=== PATIENT | female | born 1975 | race Caucasian/White ===

== ENCOUNTER 2016-11-13 03:31 | Emergency (ER) | payer OTHER ==
[2016-11-13 04:11] VITALS: BP 111/77; PULSE 89; TEMP 97.6; BMI 27.9
[2016-11-13] MEDS ORDERED: SODIUM CHLORIDE 0.9% 1000 ML INFUS.BAG IV ONE (04:19)
[2016-11-13] MEDS ORDERED: ONDANSETRON 4 MG/2 ML VIAL IVPUSH ONE (04:19)
[2016-11-13] MEDS ORDERED: MECLIZINE HCL 25 MG TABLET (FP) PO ONE (04:19)
[2016-11-13] MEDS ORDERED: ONDANSETRON 4 MG/2 ML VIAL ONE (04:40)
[2016-11-13] MEDS ORDERED: MECLIZINE HCL 25 MG TABLET (FP) ONE (04:40)
[2016-11-13 04:59] LABS: BASOPHIL 0.3 % (0-2.0); EOSINOPHIL 0.3 % (0-4.5); MCH 29.6 pg (25.7-33.7); MCHC 34.3 g/dl (32.0-36.0); MEAN CELL VOLUME 86.3 fl (80-96); MEAN PLT VOLUME 9.1 fl (7.5-11.1); PLATELET COUNT 250 K/MM3 (134-434); RDW 13.2 % (11.6-15.6); WHITE BLOOD COUNT 13.8 K/mm3 (4.0-10.0)
[2016-11-13 05:25] LABS: ALBUMIN 4.2 g/dl (3.4-5.0); ALK PHOS 64 U/L (45-117); ANION GAP 7 (8-16); BILIRUBIN,TOTAL 0.6 mg/dL (0.2-1.0); CALCIUM 9.1 mg/dL (8.5-10.1); CO2 26 mmol/L (21-32); CREATININE 0.7 mg/dL (0.55-1.02); GLUCOSE,RANDOM 134 mg/dL (74-106); SGOT/AST 19 U/L (15-37); SGPT/ALT 26 U/L (12-78); TOT PROT 7.7 g/dl (6.4-8.2)
[2016-11-13] MEDS ORDERED: diazePAM 5 MG TABLET PO ONE (06:54)
[2016-11-13] MEDS ORDERED: diazePAM 5 MG TABLET ONE (07:15)
--- NOTE | 2016-11-13 07:19 | PDOC ---
History of Present Illness <Tahmina Diaz - Last Filed: 11/13/16 07:14> - History of Present Illness Initial Comments: 11/13/16 07:22 The patient is a 40 year old female, with no significant past medical history, who presents to the emergency department with 5 days of persistent left ear pain and ringing with new onset of vertigo and diarrhea for two days. She reports the left ear pain is constant and the ringing is intermittent yet frequent, but denies increased ear pain since onset. She reports feeling as if her eyes are spinning. She states her dizziness gradually increased to the point of nausea. She reports multiple episodes of nonbloody emesis which prompted her to come to the ED. She reports her stools have been watery and with her last episode of vertigo, diarrhea was the last symptoms to come also. She denies chest pain, shortness of breath, headache. She denies fever, chills, and constipation. She denies dysuria, frequency, urgency and hematuria. Allergies: NKDA Past surgical history: none reported Social history: Pt denies tobacco use <Raven Jacobo - Last Filed: 11/13/16 07:23> - General Chief Complaint: Lightheaded Stated Complaint: ABD PAIN, VOMITING Past History - Suicide/Smoking/Psychosocial Hx Smoking History: Never smoked Information on smoking cessation initiated: No Hx Alcohol Use: No Drug/Substance Use Hx: No <Tahmina Diaz - Last Filed: 11/13/16 07:14> <Raven Jacobo - Last Filed: 11/13/16 07:23> - Past Medical History Allergies/Adverse Reactions: Allergies Allergy/AdvReac Type Severity Reaction Status Date / Time Penicillins Allergy Verified 11/13/16 04:08 Home Medications: Ambulatory Orders Meclizine HCl 25 mg PO QID PRN #20 tablet 11/13/16 Review of Systems - Review of Systems Able to Perform ROS?: Yes Comments:: 11/13/16 07:22 GENERAL/CONSTITUTIONAL: No fever or chills. No weakness. HEAD, EYES, EARS, NOSE AND THROAT: (+) ear pain and ringing. No change in vision. No ear discharge. No sore throat. CARDIOVASCULAR: No chest pain or shortness of breath. RESPIRATORY: No cough, wheezing, or hemoptysis. GASTROINTESTINAL: (+) nausea, vomiting, diarrhea. No constipation. GENITOURINARY: No dysuria, frequency, or change in urination. MUSCULOSKELETAL: No joint or muscle swelling or pain. No neck or back pain. SKIN: No rash NEUROLOGIC:(+) vertigo, No headache, loss of consciousness, or change in strength/sensation. ENDOCRINE: No increased thirst. No abnormal weight change. HEMATOLOGIC/LYMPHATIC: No anemia, easy bleeding, or history of blood clots. ALLERGIC/IMMUNOLOGIC: No hives or skin allergy. <Raven Jacobo - Last Filed: 11/13/16 07:23> *Physical Exam - Vital Signs Last Vital Signs Temp Pulse Resp BP Pulse Ox 97.6 F 89 14 111/77 100 11/13/16 04:09 11/13/16 04:09 11/13/16 04:09 11/13/16 04:09 11/13/16 04:09 <Tahmina Diaz - Last Filed: 11/13/16 07:14> - Vital Signs Last Vital Signs Temp Pulse Resp BP Pulse Ox 97.6 F 89 14 111/77 100 11/13/16 04:09 11/13/16 04:09 11/13/16 04:09 11/13/16 04:09 11/13/16 04:09 - Physical Exam Comments: 11/13/16 07:22 GENERAL: Awake, alert, and fully oriented, in no acute distress HEAD: No signs of trauma EYES: PERRLA, EOMI, sclera anicteric, conjunctiva clear ENT: Auricles normal inspection, hearing grossly normal, nares patent, oropharynx clear without exudates. Moist mucosa NECK: Normal ROM, supple, no lymphadenopathy, JVD, or masses LUNGS: Breath sounds equal, clear to auscultation bilaterally. No wheezes, and no crackles HEART: Regular rate and rhythm, normal S1 and S2, no murmurs, rubs or gallops ABDOMEN: Soft, nontender, normoactive bowel sounds. No guarding, no rebound. No masses EXTREMITIES: Normal range of motion, no edema. No clubbing or cyanosis. No cords , erythema, or tenderness NEUROLOGICAL: (+) positive Brinkley hallpike to the left. Heel to whaley normal. normal alternating hand movement. normal finger to nose. Normal gait. Cranial nerves II through XII grossly intact. Normal speech, SKIN: Warm, Dry, normal turgor, no rashes or lesions noted. <Raven Jacobo - Last Filed: 11/13/16 07:23> ED Treatment Course - LABORATORY CBC & Chemistry Diagram: 11/13/16 04:54 11/13/16 04:50 - ADDITIONAL ORDERS Additional order review: Laboratory Results 11/13/16 11/13/16 04:54 04:50 Sodium 135 L Potassium 4.3 Chloride 102 Carbon Dioxide 26 Anion Gap 7 L BUN 13 Creatinine 0.7 Creat Clearance w eGFR > 60 Random Glucose 134 H Calcium 9.1 Total Bilirubin 0.6 AST 19 ALT 26 Alkaline Phosphatase 64 Total Protein 7.7 Albumin 4.2 Urine HCG, Qual Negative 11/13/16 04:54 RBC 4.30 MCV 86.3 MCHC 34.3 RDW 13.2 MPV 9.1 Neutrophils % 85.0 H Lymphocytes % 8.7 Monocytes % 5.7 Eosinophils % 0.3 Basophils % 0.3 - Medications Given in the ED: ED Medications Discontinued Medications Generic Name Dose Route Start Last Admin Trade Name Freq PRN Reason Stop Dose Admin Meclizine HCl 25 mg 11/13/16 04:19 11/13/16 04:53 Antivert - PO 11/13/16 04:20 25 mg ONCE ONE Administration Ondansetron HCl 4 mg 11/13/16 04:19 11/13/16 04:53 Zofran Injection IVPUSH 11/13/16 04:20 4 mg ONCE ONE Administration Sodium Chloride 1,000 ml 11/13/16 04:19 11/13/16 04:53 Normal Saline - IV 11/13/16 04:20 1,000 ml ONCE ONE Administration <Tahmina Diaz - Last Filed: 11/13/16 07:14> - LABORATORY CBC & Chemistry Diagram: 11/13/16 04:54 11/13/16 04:50 - ADDITIONAL ORDERS Additional order review: Laboratory Results 11/13/16 11/13/16 04:54 04:50 Sodium 135 L Potassium 4.3 Chloride 102 Carbon Dioxide 26 Anion Gap 7 L BUN 13 Creatinine 0.7 Creat Clearance w eGFR > 60 Random Glucose 134 H Calcium 9.1 Total Bilirubin 0.6 AST 19 ALT 26 Alkaline Phosphatase 64 Total Protein 7.7 Albumin 4.2 Urine HCG, Qual Negative 11/13/16 04:54 RBC 4.30 MCV 86.3 MCHC 34.3 RDW 13.2 MPV 9.1 Neutrophils % 85.0 H Lymphocytes % 8.7 Monocytes % 5.7 Eosinophils % 0.3 Basophils % 0.3 - Medications Given in the ED: ED Medications Discontinued Medications Generic Name Dose Route Start Last Admin Trade Name Eric PRN Reason Stop Dose Admin Meclizine HCl 25 mg 11/13/16 04:19 11/13/16 04:53 Antivert - PO 11/13/16 04:20 25 mg ONCE ONE Administration Ondansetron HCl 4 mg 11/13/16 04:19 11/13/16 04:53 Zofran Injection IVPUSH 11/13/16 04:20 4 mg ONCE ONE Administration Sodium Chloride 1,000 ml 11/13/16 04:19 11/13/16 04:53 Normal Saline - IV 11/13/16 04:20 1,000 ml ONCE ONE Administration <Raven Jacobo - Last Filed: 11/13/16 07:23> Medical Decision Making - Medical Decision Making 11/13/16 07:14 40 yo F with h/o vertigo, here with ears ringing, and vertigo symptoms. worse with movement. has had tinitus for 5 days, then vertigo for 2 days, today had nausea, and emesis x 2. also c/o loosde watery stool. has had many years ago, never followed up with nuerology. no gait disturbance. no new medication. on exam awake alert lungs clear bilaterally . heart rrr no mrg abd soft nt nd. ext wwp . skin warm and dry. normal nuero exam with finger to nose, heel to whaley , alt hand movement and gait. pos isabell hallpike to left differential dehydration, . positional vertigo meniers diseas. plan labs meclizine. fluids reassess. <Tahmina Diaz - Last Filed: 11/13/16 07:14> *DC/Admit/Observation/Transfer - Discharge Dispostion Admit: No <Tahmina Diaz - Last Filed: 11/13/16 07:14> - Attestations Scribe Attestion: 11/13/16 07:23 Documentation prepared by Raven Jacobo, acting as medical dermatologist for Tahmina Diaz MD, <Raven Jacobo - Last Filed: 11/13/16 07:23> Diagnosis at time of Disposition: Positional vertigo - Prescriptions Prescriptions: Meclizine HCl 25 mg PO QID PRN #20 tablet PRN Reason: Vertigo - Referrals Referrals: Santosh Meng MD [Staff Physician] - Alex Barboza MD [Staff Physician] - - Patient Instructions Printed Discharge Instructions: Benign Paroxysmal Positional Vertigo Additional Instructions: you need to follow up [facility] nuerology, call dr meng to schedule. see referal information. you should also follow up with ear, nose and throat , dr Barboza, see referral for phone number. take meclizine every 6 hours as needed for vertigo or dizziness. return for any problems or concerns. - Post Discharge Activity Work/School Note: Back to Work
== END 2016-11-13 07:26 | disposition home or self-care (01) ==
LOC: JER 03:31
PROC: 3E033GC Introduction of Other Therapeutic Substance into Peripheral Vein, Percutaneous Approach (ICD-10-PCS; principal; 2016-11-13)
DX: H81.12 Benign paroxysmal vertigo, left ear (principal)
CPT/HCPCS: 36415; 80053; 84703; 85025; 96374; 99283-25